=== PATIENT | female | born 1990 | race Two or more races ===

== ENCOUNTER 2018-08-06 14:03 | Emergency (ER) | payer MEDICAID, OTHER ==
[~2018-08-06] VITALS: Ht 162.6 cm; Wt 54.4 kg
[2018-08-06] MEDS ORDERED: SODIUM CHLORIDE 0.9% 1,000 ML IV ONE ×2 (14:23)
[2018-08-06] MEDS ORDERED: LORazepam 2MG/ML-1ML VIAL IV ONE (14:30)
[2018-08-06 15:20] LABS: Basophils # (auto) 0 uL; Basophils % (auto) 0.3 % (0.0-2.0); Eosinophils # (auto) 0.1 uL; Eosinophils % (auto) 1.1 % (0.0-7.0); Hematocrit 37.3 % (36.0-46.0); Hemoglobin 12.4 g/dL (12.2-16.2); Lymphocytes # (auto) 5.1 uL; Mean Corpuscular Hemoglobin 27.1 pg (28.0-32.0); Mean Corpuscular Hgb Conc. 33.3 g/dL (32.0-36.0); Mean Corpuscular Volume 81.4 fL (80.0-100.0); Monocytes # (auto) 0.7 uL; Monocytes % (auto) 8.4 % (0.0-12.0); Neutrophils # (auto) 2.1 uL; Nucleated Red Blood Cells % 0.4 %; Platelet Count (auto) 190 10^3/uL (140-450); Red Blood Cells 4.58 10^6/uL (4.0-5.20); Red Cell Distribution Width 15.8 % (11.8-14.3); White Blood Cell 7.9 10^3/uL (4.4-10.8)
[2018-08-06 15:22] LABS: Lymphocytes % (auto) 64.2 % (10.0-50.0)
[2018-08-06 15:28] LABS: Albumin 2.8 g/dL (3.4-5.0); Anion Gap 6 (5-15); Blood Urea Nitrogen 10 mg/dL (7-18); Calcium 7.6 mg/dL (8.5-10.1); Carbon Dioxide 27 mmol/L (21-32); Chloride 109 mmol/L (98-107); Glucose 100 mg/dL (74-106); Potassium 3.9 mmol/L (3.5-5.1); Sodium 142 mmol/L (136-145)
[2018-08-06 15:35] LABS: Alanine Aminotransferase 73 U/L (13-56); Alkaline Phosphatase 75 U/L (45-117); Aspartate Aminotransferase 54 U/L (15-37); BUN/Creatinine Ratio 15.4; Bilirubin, Total 0.3 mg/dL (0.2-1.0); GFR African American 140 mL/min; GFR Non-African American 115 mL/min; Total Protein 6.5 g/dL (6.4-8.2)
[2018-08-06] MEDS ORDERED: KETOROLAC TROMETH 30 MG/ML 1ML VIAL IV ONE (17:15)
[2018-08-06 17:47] VITALS: BP 113/68
[2018-08-06 17:47] LABS: Urine Bacteria MOD /hpf (None Seen); Urine Blood 3+ /uL (Negative); Urine Mucus FEW (None Seen); Urine Specific Gravity 1.018 (1.001-1.035); Urine WBC 11 /hpf (0 - 5)
[2018-08-06 17:50] LABS: Amphetamine Screen, Urine POSITIVE (NEGATIVE); Barbiturate Scree,Urine NEGATIVE (NEGATIVE); Benzodiazephine Screen, Urine NEGATIVE (NEGATIVE); Cannabinoid Screen, Urine NEGATIVE (NEGATIVE); Cocaine Screen, Urine NEGATIVE (NEGATIVE); Opiate Scree,Urine NEGATIVE (NEGATIVE); Phencyclidine Screen, Urine NEGATIVE (NEGATIVE)
[2018-08-06 18:05] LABS: Urine Pregnacy Test Negative (Negative)
== END 2018-08-06 18:54 | disposition home or self-care (01) ==
LOC: EDBD 14:03 → ER 14:05
DX: S46.912A Strain of unspecified muscle, fascia and tendon at shoulder and upper arm level, left arm, initial encounter (principal); N39.0 Urinary tract infection, site not specified; F17.210 Nicotine dependence, cigarettes, uncomplicated; F12.10 Cannabis abuse, uncomplicated; F15.10 Other stimulant abuse, uncomplicated; Z88.8 Allergy status to other drugs, medicaments and biological substances; X58.XXXA Exposure to other specified factors, initial encounter; Y93.89 Activity, other specified; Y99.8 Other external cause status; Y92.89 Other specified places as the place of occurrence of the external cause
CPT/HCPCS: 36415; 73020; 80053; 80307; 81001; 81025; 84484; 85025; 93005; 96374; 96375; 99285; J1885; J2060; J7030